=== PATIENT | male | born 1970 | race African-American/Black ===

== ENCOUNTER 2023-05-22 23:10 | Emergency (ER) | payer OTHER, SELFPAY ==
--- NOTE | 2023-05-22 23:15 | ECG_ITS ---
Measurements Intervals [place] Rate: 84 P: 52 GA: 134 QRS: 41 QRSD: 100 T: 53 QT: 347 QTc: 410 Interpretive Statements SINUS RHYTHM FREQUENT ATRIAL PREMATURE COMPLEXES INCOMPLETE RIGHT BUNDLE BRANCH BLOCK ABNORMAL ECG NO PREVIOUS ECG AVAILABLE FOR COMPARISON Electronically Signed On 05-23-2023 6:22:03 CDT by Nacho Henao D.O.
[2023-05-22 23:18] VITALS: PULSE 81
[2023-05-22 23:21] VITALS: BP 194/99; PULSE 84; RESP 17; TEMP 36.4; O2SAT 99
[2023-05-22] MEDS: SODIUM CHLORIDE 0.9% IV 1,000 ML 999 ML IV CONT (23:29)
[2023-05-22 23:35] LABS: Basophils Percent Auto 0.5 % (0.2-1.2); Eosinophils Absolute Auto 0.2 K/mm3 (0-0.3); Eosinophils Percent Auto 2.7 % (0-4.4); Hematocrit 44.7 % (42.0-52.0); Hemoglobin 15.2 g/dL (14.0-18.0); Immature Granulocyte Absolute 0.01 K/mm3 (0.00-0.031); Immature Granulocyte Percent A 0.2 % (0-0.5); Lymphocytes Absolute Auto 2.42 K/mm3 (0.9-3.2); Lymphocytes Percent Auto 43.1 % (18.3-44.2); Mean Corpuscular Hemoglobin 28.2 pg (26-34); Mean Corpuscular Volume 82.9 fl (80-100); Mean Platelet Volume 10.6 fl (7.4-10.4); Monocytes Absolute Auto 0.4 K/mm3 (0.1-0.6); Monocytes Percent Auto 6.2 % (2.6-8.5); Neutrophils Absolute Auto 2.7 K/mm3 (1.3-6.7); Neutrophils Percent Auto 47.3 % (45.5-73.1); Platelet Count Result 200 k/mm3 (150-375); Red Blood Count 5.39 M/mm3 (4.6-6.20); Red Cell Distribution Width 13.7 % (11.5-14.5); White Blood Count 5.6 K/mm3 (4.5-10.0)
[2023-05-22 23:45] LABS: Prothrombin Time 13.8 Seconds (11.1-14.7)
[2023-05-22 23:47] LABS: Alanine Aminotransferase 44 U/L (6-50); Albumin Level 5.1 g/dL (3.5-5.1); Alkaline Phosphatase 106 U/L (38-126); Anion Gap 10 mmol/L (8-16); Aspartate Amino Transferase 39 U/L (17-59); Bilirubin,Total 0.6 mg/dL (0.2-1.3); Blood Urea Nitrogen 18 mg/dL (9-20); Carbon Dioxide 26 mmol/L (22-30); Chloride 107 mmol/L (98-107); Estimated CRCL calculation 128 ml/min; Estimated Glomerular Filt Rate > 60; Glucose 115 mg/dL (65-110); Lipase 197 U/L (23-300); Potassium 3.3 mmol/L (3.4-5.0); Sodium 143 mmol/L (137-145)
--- NOTE | 2023-05-22 23:48 | ED.GENADULT ---
HPI - General Adult General Chief complaint: Arrhythmia/Palpitations Stated complaint: palpations Time Seen by Provider: 05/22/23 23:24 History of Present Illness HPI narrative: Patient is a 52-year-old gentleman who presents the emergency department with chief complaint of chest fluttering. Patient reports he has history of hypertension and diabetes patient states he had no pain in his chest but feels as though his heart is fluttering and irregular. The patient reports no syncope patient reports no extra caffeine does drink about half a pot of coffee a day reports no energy drinks denies illicit drug use Related Data Allergies Allergy/AdvReac Type Severity Reaction Status Date / Time No Known Allergies Allergy Verified 05/22/23 23:18 Review of Systems Review of Systems: A 10 system review of systems was completed on the patient and is negative except for what is stated in the HPI. Nursing and ancillary documentation was reviewed. Exam Narrative: GENERAL: Well-appearing, well-nourished, and in no acute distress. HEAD: Normocephalic, atraumatic. EYES: PERRLA and EOMI. ENT: Nares clear, no rhinorrhea or epistaxis. Mucous membranes moist. NECK: Supple. CHEST: Clear to auscultation. No respiratory distress. HEART: Regular rate and rhythm. No murmur heard. Normal peripheral pulses. ABDOMEN: Soft, nontender, nondistended, normal active bowel sounds. EXTREMITIES: Normal range of motion. No edema. SKIN: Warm, dry, no rash. NEURO: No focal deficits. Alert and oriented x3. PSYCH: Normal mood and affect. Course Vital Signs Vital signs: Vital Signs Pulse Rate 81 05/22/23 23:18 Temperature 36.4 C L 05/22/23 23:21 Pulse Rate 75 05/23/23 01:01 Respiratory Rate 19 05/23/23 01:01 Blood Pressure 169/95 H 05/23/23 01:01 Pulse Oximetry 100 05/23/23 01:01 Oxygen Delivery Room Air 05/22/23 23:21 Medical Decision Making [facility] Narrative Medical decision making narrative: Differential diagnosis is dysrhythmia, electrolyte abnormality, hyper or hypothyroidism. EKG showed sinus rhythm with frequent supraventricular complexes Patient was observed in the emergency department still having some supraventricular complexes but is currently asymptomatic. Laboratory studies were obtained which showed a CBC with a white count of 5.6 hemoglobin was 15.2 electrolytes showed a potassium of 3.3 and a magnesium of 2.0 Patient was given p.o. potassium in the emergency department to replace the hypokalemia Vital Signs Vital Signs: Vital Signs Pulse Rate 81 05/22/23 23:18 Temperature 36.4 C L 05/22/23 23:21 Pulse Rate 75 05/23/23 01:01 Respiratory Rate 19 05/23/23 01:01 Blood Pressure 169/95 H 05/23/23 01:01 Pulse Oximetry 100 05/23/23 01:01 Oxygen Delivery Room Air 05/22/23 23:21 Lab Data 05/22/23 23:28 05/22/23 23:28 Labs: Lab Results 05/22/23 05/22/23 Range/Units 23:28 23:29 WBC 5.6 (4.5-10.0) K/mm3 RBC 5.39 (4.6-6.20) M/mm3 Hgb 15.2 (14.0-18.0) g/dL Hct 44.7 (42.0-52.0) % MCV 82.9 (80-100) fl MCH 28.2 (26-34) pg MCHC 34.0 (32-36) g/dl RDW 13.7 (11.5-14.5) % Plt Count 200 (150-375) k/mm3 MPV 10.6 H (7.4-10.4) fl Immature Gran % (Auto) 0.2 (0-0.5) % Neut % (Auto) 47.3 (45.5-73.1) % Lymph % (Auto) 43.1 (18.3-44.2) % Hitchcock % (Auto) 6.2 (2.6-8.5) % Eos % (Auto) 2.7 (0-4.4) % Baso % (Auto) 0.5 (0.2-1.2) % Lymph # (Auto) 2.42 (0.9-3.2) K/mm3 Hitchcock # (Auto) 0.4 (0.1-0.6) K/mm3 Eos # (Auto) 0.2 (0-0.3) K/mm3 Baso # (Auto) 0.0 (0.0-0.1) K/mm3 Abs Immat Gran (auto) 0.01 (0.00-0.031) K/mm3 Absolute Neuts (auto) 2.7 (1.3-6.7) K/mm3 Absolute Nucleated RBC 0.0 (0.0-0.012) K/mm3 Nucleated RBC % 0.0 (0.0-0.2) % PT 13.8 (11.1-14.7) Seconds INR 1.0 APTT 31.5 (22.3-36.8) SECONDS Sodium 143 (137-145) mmol/L Potassium 3.3 L
[2023-05-22 23:49] LABS: Partial Thromboplastin Time 31.5 SECONDS (22.3-36.8)
[2023-05-22 23:59] LABS: NT Pro B Type Natriuretic Pept 30 pg/mL (19.9-100)
[2023-05-23] MEDS: POTASSIUM CHLORIDE 20 MEQ PACKET (FOR LIQUID) 40 MEQ PO (00:29)
[2023-05-23 01:01] VITALS: BP 169/95; PULSE 75; RESP 19; O2SAT 100
== END 2023-05-23 01:12 | disposition home or self-care (01) ==
PROVIDERS: Emergency Provider Emergency Medicine
DX: R00.2 Palpitations (principal); I49.1 Atrial premature depolarization; E87.6 Hypokalemia; E11.9 Type 2 diabetes mellitus without complications; I10 Essential (primary) hypertension; I45.10 Unspecified right bundle-branch block
CPT/HCPCS: 36415; 80053; 83690; 83735; 83880; 84443; 85025; 85610; 85730; 93005; 96360; 99284; A9270; J7030